=== PATIENT | male | born 1965 | race Caucasian/White ===

== ENCOUNTER 2016-09-10 06:39 | Emergency (ER) | payer BC ==
[~2016-09-10] VITALS: Ht 177.8 cm; Wt 127.0 kg
--- NOTE | ~2016-09-10 | CR181 ---
[facility] A Service of [facility] RADIOLOGY TEXT RESULTS PATIENT: LEANDER PICHARDO LOCATION: [facility] : 67 UNIT #: [id number] AGE: [address]: María Rush SEX: M ORDER DR: [id number] [facility] [address] [place], [place] [address] [id number] E MR#: [id number] Acc #: [id number] NAME: LEANDER PICHARDO : 1965 SEX: M STUDY DATE/TIME: 09/10/2016 7:51 UNIT: [facility] ROOM: STUDY DESCRIPTION: CR Lumbar Spine 2 or 3 Views Attending Physician: María Rush Pa-C Ordering Physician: María Rush Pa-C Primary Care Physician: Maria Antonia Ray M.D. MEDICAL IMAGING REPORT This report is preliminary unless electronic signature is present EXAM Lumbar spine series INDICATION Lower back pain today. PROCEDURE 3 views of lumbar spine. COMPARISON None. FINDINGS Lumbar bodies have normal height. Alignment is preserved. Sacroiliac joints are symmetric. IMPRESSION No acute findings. Dictated by... Sameer Ramos M.D. THIS IS AN ELECTRONICALLY VERIFIED REPORT Sameer Ramos M.D. at 09/11/2016 8:26 AM EED/saleem TD: 09/10/2016 11:33 JOB #: [id number] MEDICAL IMAGING REPORT Page 1 of 1 COPY
[~2016-09-10 06:39] MED LIST: ALLEGRA PO; BENTYL20 M1 PO; BISOPROLOL-HCT1 EAC1 PO; BISOPROLOL-HCTZ1 TAB PO; BP MED; BYSTOLIC10 MG PO; CERTAGEN PO; CLARITIN10 M2 PO; CLARITIN10 M3 PO; DARVOCET-N 1001 TA1 DOB; DIOVAN PO; DOXYCYCLINE PO; EQUATE ALLERGY RELIE PO; FLAGYL PO; FLOMAX0.4 M1 PO; HYDROCODONE-APA1 T55 PO; KEFLEX500 MG PO; LEVAQUIN PO; LEVAQUIN750 MG PO; LISINOPRIL; LOPRESSOR PO; LORTAB 10-5001 EACH PO; MEDROL PO; MEDROL4 MG/DOSE- PO; NAPROSYN-EC500 M1 PO; SERTRALINE HCL50 MG PO; TYLENOL #3 PO; TYLOX 5/500 CAP1 CAP PO; ZIAC 10-6.25 M1 EACH PO; ZITHROMAX PO; ZOLOFT100 MG PO
== END 2016-09-10 09:46 | disposition home or self-care (01) ==
LOC: CED 06:39
DX: S39.012A Strain of muscle, fascia and tendon of lower back, initial encounter (principal); I10 Essential (primary) hypertension; F32.9 Major depressive disorder, single episode, unspecified; Z87.442 Personal history of urinary calculi; Z90.49 Acquired absence of other specified parts of digestive tract; Z98.890 Other specified postprocedural states; W10.9XXA Fall (on) (from) unspecified stairs and steps, initial encounter; Y92.009 Unspecified place in unspecified non-institutional (private) residence as the place of occurrence of the external cause
CPT/HCPCS: 36415; 72100; 96361; 96372; 96374; 99285; J1885; J2360